=== PATIENT | female | born 1945 | race Caucasian/White ===

== ENCOUNTER 2017-12-21 08:00 | Outpatient (CLI) | payer MEDICARE, OTHER | END 2017-12-21 09:00 | disposition home or self-care (01) | LOC: D.MAMMO 08:00 | DX: Z12.31 Encounter for screening mammogram for malignant neoplasm of breast (principal) ==

== ENCOUNTER 2019-05-18 09:00 | Outpatient (CLI) | payer MEDICARE, OTHER | END 2019-05-18 10:00 | disposition home or self-care (01) | LOC: D.MAMMO 09:00 | PROVIDERS: ATTEND Family Medicine | DX: Z12.31 Encounter for screening mammogram for malignant neoplasm of breast (principal) ==